=== PATIENT | female | born 1990 | race Caucasian/White ===

== ENCOUNTER 2021-03-15 15:40 | Emergency (ER) | payer BC ==
[2021-03-15 16:30] LABS: Urine Blood 3+ (Negative); Urine Glucose Negative (Negative); Urine Protein Negative (Negative); Urine Specific Gravity 1.025 (1.005-1.030); Urine pH 5.5 (5.0-7.0)
--- NOTE | 2021-03-15 16:35 | RAD REPORT ---
EXAM DESCRIPTION: US - Transvaginal OB - 03/15/2021 4:24 pm CLINICAL HISTORY: VAGINAL BLEEDING COMPARISON: No comparisons FINDINGS: Endometrial stripe is 4 mm with no endometrial mass or polyp. No gestational sac or sac re mnant seen. No intrauterine hematoma identified. Uterus is approximately 8.6 x 4.0 x 4.7 cm. No suspicious myometrial mass. No blood or fluid seen in the cul de sac. Normal size left ovary is seen with normal blood flow in the left ovarian stroma. No left ovarian or left adnexal abnormality. Nonvisualization of the right ovary probably due to prominent bowel. No right adnexal mass seen. IMPRESSION: No intrauterine gestational sac, sac remnant or intrauterine hematoma. Normal left ovary and left adnexum. Nonvisualization of the right ovary. No right adnexal mass.
[2021-03-15 16:58] LABS: Absolute Lymphocytes (CBC) 1.7 K/uL (0.7-4.9); Basophils % 0.8 % (0-1.3); Hematocrit 38.5 % (36.0-45.0); MPV 8.7 fL (7.6-11.3)
[2021-03-15 17:14] LABS: Potassium 3.7 mmol/L (3.5-5.1)
--- NOTE | 2021-03-15 18:38 | ER ---
Nurse's Notes [facility] Name: Tashia Pisano Age: 30 yrs Sex: Female : 1990 Arrival Date: 03/15/2021 Time: 15:42 Bed 11 Private MD: Diagnosis: Threatened ;Low back pain Presentation: 03/15 15:46 Chief complaint: Patient states: Had a positive test at home last week. ll1 Cramping, back pain, vaginal bleeding (like the beginning of a period) started today. G2, P1. Coronavirus screen: Vaccine status: Patient reports being unvaccinated. Client denies travel out of the [place] in the last 14 days. At this time, the client does not indicate any symptoms associated with coronavirus-19. Ebola Screen: Patient denies travel to an Ebola-affected area in the 21 days before illness onset. Initial Sepsis Screen: Does the patient meet any 2 criteria? HR > 90 bpm. No. Patient's initial sepsis screen is negative. Does the patient have a suspected source of infection? No. Patient's initial sepsis screen is negative. Risk Assessment: Do you want to hurt yourself or someone else? Patient reports no desire to harm self or others. Onset of symptoms was March 15, 2021. 15:46 Method Of Arrival: Ambulatory ll1 15:46 Acuity: JESSY 3 ll1 Triage Assessment: 15:49 General: Appears in no apparent distress. Behavior is calm, cooperative, appropriate ll1 for age. Pain: Complains of pain in abdomen Quality of pain is described as crampy. Neuro: No deficits noted. Cardiovascular: No deficits noted. Respiratory: No deficits noted. GI: Reports. : Reports vaginal bleeding that is moderate flow. 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 Flu vaccine status is unknown. - Social history:: Smoking status: Patient denies any tobacco usage or history of. Screenin:40 Abuse screen: Denies threats or abuse. Denies injuries from another. Nutritional jg9 screening: No deficits noted. Tuberculosis screening: No symptoms or risk factors identified. Fall Risk None identified. Assessment: 16:50 Reassessment: No changes from previously documented assessment. Patient and/or family ll1 updated on plan of care and expected duration. Pain level reassessed. Patient is alert, oriented x 3, equal unlabored respirations, skin warm/dry/pink. 17:30 Reassessment: No changes from previously documented assessment. Patient and/or family ll1 updated on plan of care and expected duration. Pain level reassessed. Patient is alert, oriented x 3, equal unlabored respirations, skin warm/dry/pink. 17:41 Obstetrical Assessment: Patient reports vaginal bleeding, "I feel like I just started jg9 my period". per patient. patient has use 2 pads thus far today. . Vital Signs: 15:46 BP 136 / 89; Pulse 95; Resp 16; Temp 98.4; Pulse Ox 98% ; Weight 90.72 kg; Height 5 ft. ll1 11 in. (180.34 cm); Pain 3/10; 17:40 BP 125 / 85; Pulse 78; Resp 16; Pulse Ox 98% on R/A; jg9 18:40 BP 125 / 92; Pulse 76; Resp 16; Pulse Ox 100% on R/A; jg9 15:46 Body Mass Index 27.89 (90.72 kg, 180.34 cm) ll1 Vitals: 18:28 Heart Tones transvaginal US reports no visualization of embryo sac nor remnants jg9 of intrauterine sac-FHT not assessed as a result. . ED Course: 15:42 Patient arrived in ED. as 15:46 Arm band placed on. ll1 15:48 Triage completed. ll1 16:24 Transvaginal OB In Process Unspecified. EDMS 16:50 Inserted saline lock: 22 gauge in right antecubital area, using aseptic technique. ll1 Blood collected. 17:30 Patient placed in an exam room, on a stretcher. ll1 17:40 Emre Winter PA is PHCP. cp 17:40 Reid Bush MD is Attending Physician. cp 17:41 No apparent distress. Awaiting lab results. jg9 17:42 Patient has correct armband on for positive identification. Bed in low position. Call jg9 light in reach. 18:30 No provider procedures requiring assistance completed. jg9 18:40 IV discontinued, intact, bleeding controlled, No redness/swelling at site. Pressure jg9 dressing applied. 18:51 Urine --Ancillary (enter results) Sent. eb Administered Medications: No medications were administered Point of Care Testing: Urine : 18:49 done by staff prior to patient arriving to room #11 jg9 Outcome: 18:38 Discharge ordered by . santa 18:41 Condition: stable jg9 18:49 Discharged to home ambulatory. jg9 18:49 Discharge instructions given to patient, Instructed on discharge instructions, follow up and referral plans. Demonstrated understanding of instructions, follow-up care, Prescriptions given X 1. 18:51 Patient left the ED. jg9 Signatures: Dispatcher [employer] Erica Zambrano Corey, PA PA cp Botello, Elizabeth eb Lewis, Lynsay, RN RN ll1 Mi Flores jg9
--- NOTE | 2021-03-15 18:39 | EDPHYS ---
Physician Documentation [facility] Name: Tashia Pisano Age: 30 yrs Sex: Female : 1990 Arrival Date: 03/15/2021 Time: 15:42 Bed 11 Private MD: ED Physician Reid Bush HPI: 03/15 18:00 This 30 yrs old Female presents to ER via Ambulatory with complaints of Vaginal cp Bleeding, + Preg <12wks, Back Pain. 18:00 The patient presents to the emergency department with vaginal bleeding, that is light, cp with no clots. The estimated gestational age is 6 weeks. 18:00 course: care: none, Leakage of Fluid: none appreciated, Ultrasound: cp the patient has not had an ultrasound. Previous pregnancies: in previous pregnancies patient has had HTN. Associated signs and symptoms: Pertinent positives: lower back pain, abdominal cramps. 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 Flu vaccine status is unknown. - Social history:: Smoking status: Patient denies any tobacco usage or history of. ROS: 18:05 Constitutional: Negative for body aches, chills, fever, poor PO intake. cp 18:05 Eyes: Negative for injury, pain, redness, and discharge. cp 18:05 ENT: Negative for ear pain, sore throat, difficulty swallowing, difficulty handling secretions. 18:05 Cardiovascular: Negative for chest pain. 18:05 Respiratory: Negative for cough, shortness of breath, wheezing. 18:05 Abdomen/GI: Positive for abdominal cramps, Negative for nausea, vomiting, and diarrhea. 18:05 : Positive for vaginal bleeding, Negative for urinary symptoms. 18:05 Neuro: Negative for altered mental status, headache, weakness. 18:05 All other systems are negative. Exam: 18:10 Constitutional: The patient appears in no acute distress, alert, awake, comfortable, cp non-toxic, well developed, well nourished. 18:10 Head/Face: Normocephalic, atraumatic. cp 18:10 Eyes: Periorbital structures: appear normal, Conjunctiva: normal, no exudate, no injection, Sclera: no appreciated abnormality, Lids and lashes: appear normal, bilaterally. 18:10 ENT: External ear(s): are unremarkable, Nose: is normal, Posterior pharynx: Airway: no evidence of obstruction, patent. 18:10 Chest/axilla: Inspection: normal. 18:10 Cardiovascular: Rate: normal, Rhythm: regular. 18:10 Respiratory: the patient does not display signs of respiratory distress, Respirations: normal, no use of accessory muscles, no retractions, labored breathing, is not present. 18:10 Abdomen/GI: Inspection: abdomen appears normal, Bowel sounds: active, all quadrants, Palpation: soft, in all quadrants, mild abdominal tenderness, in the right lower quadrant and left lower quadrant, voluntary guarding, is not appreciated, involuntary guarding, is not appreciated. 18:10 Back: pain, that is very mild, of the low back area, ROM is normal. Vital Signs: 15:46 BP 136 / 89; Pulse 95; Resp 16; Temp 98.4; Pulse Ox 98% ; Weight 90.72 kg; Height 5 ft. ll1 11 in. (180.34 cm); Pain 3/10; 17:40 BP 125 / 85; Pulse 78; Resp 16; Pulse Ox 98% on R/A; jg9 18:40 BP 125 / 92; Pulse 76; Resp 16; Pulse Ox 100% on R/A; jg9 15:46 Body Mass Index 27.89 (90.72 kg, 180.34 cm) ll1 MDM: 17:48 Patient medically screened. cp 18:00 Differential diagnosis: STD, ectopic . cp 18:35 Data reviewed: vital signs, nurses notes, lab test result(s), radiologic studies, cp ultrasound. 18:35 Counseling: I had a detailed discussion with the patient and/or guardian regarding: the cp historical points, exam findings, and any diagnostic results supporting the discharge/admit diagnosis, lab results, radiology results, the need for outpatient follow up, an OB/Gyne specialist, to return to the emergency department if symptoms worsen or persist or if there are any questions or concerns that arise at home. ED course: VSS. Discussed results of labs and US. Will discharge to home for continued monitoring. Recommend 48 hr beta-hcg recheck. Return to ED worsening symptoms. 03/15 16:30 Order name: Urine Dipstick-Ancillary; Complete Time: 16:34 EDMS 03/15 18:22 Interpretation: Normal except: UKET Trace; UBLD 3+. cp 03/15 16:31 Order name: Abo/rh Typing; Complete Time: 17:48 rn 03/15 16:31 Order name: Basic Metabolic Panel; Complete Time: 17:20 rn 03/15 18:22 Interpretation: Normal except: CL 109; GFR 77. cp 03/15 16:31 Order name: CBC with Diff; Complete Time: 17:20 rn 03/15 16:31 Order name: Quantitative Hcg; Complete Time: 17:20 rn 03/15 16:32 Order name: Urine --Ancillary (enter results) eb 03/15 16:01 Order name: Transvaginal OB; Complete Time: 16:45 EDMS 03/15 16:31 Order name: IV Saline Lock; Complete Time: 17:49 rn 03/15 16:31 Order name: Labs collected and sent; Complete Time: 17:49 rn 03/15 16:31 Order name: NPO; Complete Time: 16:34 rn 03/15 16:31 Order name: Urine Dipstick-Ancillary (obtain specimen); Complete Time: 16:34 rn Administered Medications: No medications were administered Point of Care Testing: Urine : 18:49 done by staff prior to patient arriving to room #11 jg9 Disposition: 03/16 17:59 Co-signature as Attending Physician, Reid Bush MD I agree with the assessment and rn plan of care. Attestation: The patient's history, exam findings, diagnostics, and a summary of any interventions or procedures was reviewed in detail with Emre WRIGHT. Disposition Summary: 03/15/21 18:38 Discharge Ordered Location: Home cp Problem: new cp Symptoms: are unchanged cp Condition: Stable cp Diagnosis - Threatened cp - Low back pain cp Followup: cp - With: Private Physician - When: 48 Hours - Reason: Repeat Beta-HCG (48 Hours) Discharge Instructions: - Discharge Summary Sheet cp - Abdominal Pain During cp - Acute Back Pain, Adult cp - Care cp - Threatened Miscarriage cp - Vaginal Bleeding During , First Trimester cp - Back Exercises cp Forms: - Medication Reconciliation Form cp - Thank You Letter cp - Antibiotic Education cp - Prescription Opioid Use cp Prescriptions: - prenat.vits,sulma,sbu-imxp-gfouz Oral tablet - take 1 tablet by ORAL route once daily; 60 tablet; Refills: 0, Product cp Selection Permitted Signatures: Dispatcher [employer] EDMS Farshad Medrano PA PA jmm Nieto, Roman, MD MD rn Page, Corey, PA PA cp Lewis, Lynsay, RN RN ll1 Corrections: (The following items were deleted from the chart) 03/15 16:01 15:43 OB Limited+US.RAD.BRZ ordered. EDMS EDMS
[2021-03-15 18:55] LABS: Urine Specific Gravity/Preg 1.025 (1.005-1.030)
[2021-03-15 19:18] VITALS: TEMP 98.4
[2021-03-15 19:21] VITALS: BP 125/92; O2SAT 100
== END 2021-03-15 18:51 | disposition home or self-care (01) ==
LOC: ER 15:40
DX: O20.0 Threatened abortion (principal); Z3A.01 Less than 8 weeks gestation of pregnancy; M54.50 Low back pain, unspecified
CPT/HCPCS: 36415; 76817; 80048; 81003; 81025; 84702; 85025; 86900; 86901; 99284